=== PATIENT | female | born 1940 | race Caucasian/White ===

== ENCOUNTER 2018-02-13 14:25 | Outpatient (CLI) | payer MEDICARE | END 2018-02-13 14:26 | disposition home or self-care (01) | LOC: BICRAD 14:25 | PROVIDERS: ATTEND Specialist | DX: M25.511 Pain in right shoulder (principal); M25.562 Pain in left knee; M17.12 Unilateral primary osteoarthritis, left knee ==

== ENCOUNTER 2018-03-26 15:24 | Outpatient (CLI) | payer MEDICARE | END 2018-03-26 15:25 | disposition home or self-care (01) | LOC: BICMAMMO 15:24 | DX: Z12.31 Encounter for screening mammogram for malignant neoplasm of breast (principal) | CPT/HCPCS: 77063; 77067 ==

== ENCOUNTER 2018-08-14 14:58 | Outpatient (CLI) | payer MEDICARE ==
--- NOTE | 2018-08-14 20:30 | MRI ---
MRI OF LUMBAR SPINE WITHOUT CONTRAST: 08/14/18 HISTORY: M43.16 spondylolisthesis lumbar region. COMPARISON: CT from 2014. The aortic contour is nonaneurysmal. No retroperitoneal adenopathy. No hydronephrosis. No marrow infiltrative process. bilateral perineural cyst of the exiting S2 nerve roots. There are perineural cysts of the bilateral T10, T11, and T12 exiting nerve roots. The conus medullaris terminates near the inferior end plate of L1. Levels are as follows: T12-L1: Normal disc. No neural foraminal or spinal canal narrowing. L1-2: Mild disc desiccation. No neural foraminal or spinal canal narrowing. L2-3: Moderate degenerative disc space height loss. 1 mm retrolisthesis. There is right foraminal pos terior disc osteophyte complex causing moderate right sided neural foraminal narrowing. No significan t spinal canal narrowing. L3-4: There is low grade circumferential disc bulge. Mild effusions of the bilateral facet joints. Mi ld hypertrophic facet arthropathy on the right and moderate on the left. Moderate right and mild left sided neural foraminal narrowing. There is mildly increased posterior epidural fat. Spinal canal esvin sures approximately 5 mm. L4-5: Mild degenerative disc space height loss. There is a low grade broad based posterior disc bulge with a central annular fissure. Moderate hypertrophic facet arthropathy. Moderate bilateral neural f oraminal narrowing. L5-S1: Moderate degenerative disc space height loss. Moderate facet arthropathy. No neural foraminal or spinal canal narrowing. IMPRESSION: 1. Mild spondylosis. 2. No spondylolisthesis. 3. Multilevel perineural cysts. POS: HOME
== END 2018-08-14 14:59 | disposition home or self-care (01) ==
LOC: BICMRI 14:58
PROVIDERS: ATTEND Specialist
DX: M43.16 Spondylolisthesis, lumbar region (principal); M47.816 Spondylosis without myelopathy or radiculopathy, lumbar region; G96.19 Other disorders of meninges, not elsewhere classified
CPT/HCPCS: 72148

== ENCOUNTER 2019-06-05 11:55 | Inpatient (IN) | payer MEDICARE ==
[2019-06-05] MEDS ORDERED: Sodium Chloride 0.9% 100 ML ONE (12:47)
[2019-06-05] MEDS ORDERED: cefTRIAXone\\ROCEPHIN 1 GM VIAL ONE (12:47)
[2019-06-05] MEDS ORDERED: methylPREDNISolone Sod Succ/PF 125 MG/2 ML VIAL ONE (12:47)
[2019-06-05 13:00] LABS: Eosinophils 1 % (0-10); Hemoglobin 12.9 g/dL (12.0-16.0); Lymphocytes 12 % (21-51); MDiff Complete? YES; Mean Corpuscular HGB CONC 33.8 g/dL (32.0-36.0); Mean Corpuscular Hemoglobin 30.4 pg (27.0-31.0); Mean Platelet Volume 7.6 fL (7.4-10.4); Monocytes 9 % (0-10); Neutrophil 72 % (42-75); Platelet Count 314 thou/uL (130-400); Platelet Morphology Comment Appears Adequate; RBC Distribution Width 13.8 % (11.5-14.5); Reactive Lymphocytes 6 % (0-10); Red Blood Cell (RBC) Count 4.23 mill/uL (4.20-5.40); Toxic Granulation SLIGHT; Vacuoles SLIGHT; White Blood Cell (WBC) Count 15.1 thou/uL (4.8-10.8)
[2019-06-05 13:03] LABS: ALT (SGPT) 13 U/L (8-55); AST (SGOT) 14 U/L (5-34); Albumin 3.6 g/dL (3.4-4.8); Alkaline Phosphatase 68 U/L (40-110); Anion Gap 18 mmol/L (10-20); BUN (Urea Nitrogen) 21 mg/dL (9.8-20.1); Bilirubin, Total 0.6 mg/dL (0.2-1.2); Calc. Creatinine Clearance 0 mL/min (70-130); Calcium 10.2 mg/dL (7.8-10.44); Carbon Dioxide 26 mmol/L (23-31); Chloride 94 mmol/L (98-107); Estimated GFR-MDRD 32; Globulin 4.3 g/dL (2.4-3.5); Glucose 170 mg/dL (83-110); Protein, Total 7.9 g/dL (6.0-8.3); Sodium 135 mmol/L (136-145)
--- NOTE | 2019-06-05 13:03 | RAD ---
XR Chest Pa Lat STANDARD History: Cough. Congestion Comparison: Radiograph 2014 Findings: Small effusions. Mild portal venous congestion and early edema. No pneumothorax. Heart size upper limits of normal. No acute osseous abnormality. Nodular densities projecting over the right upper lobe and lingula. Impression: Findings of mildly decompensated congestive heart failure. Follow-up recommended as there are nodular densities projecting over the right upper lobe and lingula which may reflect areas of alveolar edema.
[2019-06-05] MEDS ORDERED: Potassium Chloride 20 MEQ TAB ONE (13:57)
[2019-06-05] MEDS ORDERED: Ondansetron ODT 4 MG TAB SL PRN (16:48)
[2019-06-05] MEDS ORDERED: Ondansetron PF 4 MG/2 ML Vial IVP PRN (16:48)
[2019-06-05] MEDS ORDERED: Acetaminophen 325 MG TAB PO PRN (16:48)
[2019-06-05] MEDS ORDERED: Sodium Chloride 0.9% 1,000 ML IV SCH (16:48)
[2019-06-05 17:18] LABS: Lactic Acid 2.9 mmol/L (0.5-2.2)
[2019-06-05 17:41] VITALS: BMI 33.8
[2019-06-05 18:27] LABS: Troponin I 0.032 ng/mL (< 0.028)
[2019-06-05] MEDS ORDERED: methylPREDNISolone Sod Succ 40 MG VIAL IVP SCH ×2 (19:00→23:59)
[2019-06-05] MEDS ORDERED: traMADol HCl 50 MG TAB PO PRN ×2 (21:16→21:36)
[2019-06-05 21:34] LABS: Troponin I 0.025 ng/mL (< 0.028)
[2019-06-05] MEDS ORDERED: Bacteriostatic Water 30 ML VIAL FS PRN (21:34)
[2019-06-05] MEDS ORDERED: Rosuvastatin 10 MG TAB PO SCH (21:45)
[2019-06-05] MEDS: Diclofenac 1% 100 GM GEL TP SCH (21:53)
[2019-06-05] MEDS: NS 0.9% w/ 20 MEQ KCL 1,000 ML IV SCH (21:54)
[2019-06-05] MEDS ORDERED: tiZANidine HCl 4 MG TAB PO SCH (22:00)
--- NOTE | 2019-06-05 23:30 | HP ---
CHIEF COMPLAINT: Shortness of breath. HISTORY OF PRESENT ILLNESS: The patient is an 79-year-old female with one week long history of increasing shortness of breath has been associated with cough, congestion. The phlegm has been light green in color. It has been getting increasing in intensity and frequency. She has began to start wheezing. She has long history of COPD. She denies any other symptoms such as, nausea, vomiting, or diarrhea. She claims that she has had a subjective fever. The patient's condition was relieved by any [id number] cough suppressants. She came to the ER when her shortness of breath that has become significantly worse. She has a 45-year pack smoking history, but quit smoking less than 10 years ago. PAST MEDICAL HISTORY: Significant for COPD, congestive heart failure, hyperlipidemia, hypertension, severe chronic back pain, and osteoporosis. PAST SURGICAL HISTORY: Includes appendectomy, hysterectomy, partial and total tonsillectomy, bladder suspension surgery to D and C, tubal ligation, and spinal injections for chronic pain. She has no psychiatric history. SOCIAL HISTORY: She continues to drink socially as mentioned above, has a 45 pack-year smoking history, but quit less than 10 years ago. 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 ALLERGIES: HER ALLERGIES ARE TO CODEINE, LEVAQUIN, AND SULFA. MEDICATIONS: She cannot recall her medications at the time of admission, which include tizanidine 4 mg at bedtime and DuoNeb nebulized treatments. REVIEW OF SYSTEMS: At the time of admission, CONSTITUTIONAL: Reports subjective fever, but no documented fever. She has shortness of breath, general malaise. HEENT: Denies ulcerations or drainage in ears, nose, and throat. CHEST: With diminished breath sounds and coughing. CARDIOVASCULAR: Denies palpitations or chest pain or heart pain. GI: States she has had some nausea, but no vomiting or diarrhea. : Denies dysuria, blood in urine or stool. MUSCULOSKELETAL: Has severe chronic back pain for which she receives injection therapy. SKIN: No new rashes or lesions. NEUROLOGIC: Cranial nerves are intact. Denies headaches or blurred vision, any areas of anesthesia. PHYSICAL EXAMINATION: VITAL SIGNS: Blood pressure initially 96/67, pulse 107, respirations 20, temperature 98.3, and O2 saturation 90% on room air. GENERAL: This is an elderly female, alert, oriented, and cooperative. HEENT: Normocephalic, atraumatic. Pupils are equal, round, and reactive to light. Arcus senilis bilaterally. Extraocular muscles are intact. TMs, nares, and pharynx are clear. NECK: Supple. Trachea midline. CHEST: With diminished breath sounds throughout. No audible wheezing at present. BREAST: Exam deferred. HEART: Regular rate and rhythm without murmur. ABDOMEN: Soft, nontender without organomegaly. : Deferred. EXTREMITIES: Without clubbing, cyanosis, or edema. Normal range of motion present. SKIN: No acute rashes or lesions. NEUROLOGIC: Cranial nerves are intact. Gait and cerebral function intact. Sensory exam is intact. Mental status is baseline. LABORATORY DATA: Lab work thus far shows WBCs at 15.1, hemoglobin 12.9, hematocrit 38 with platelets 314. Sodium 135, potassium 3.0, chloride 94, CO2 is 26, BUN 21, creatinine is 1.54 with a GFR of 32 with a glucose of 170, calcium 10.2. Lactic acid has gone from 2.1-2.9. Liver functions unremarkable. Troponin I is negative for indeterminate. Chest x-ray shows no acute findings. ASSESSMENT: 1. Exacerbation of chronic obstructive pulmonary disease with bronchitis. 2. Chronic bronchitis with exacerbation. Chest x-ray may also have early indications of congestive heart failure, possible alveolar edema as noted. 3. Hypokalemia. 4. Possible congestive heart failure exacerbation. PLAN: Plan will be scheduled neb treatments, IV steroids, serial re-evaluation, echocardiogram, hemoglobin A1c, and antibiotics. Possible supplement of potassium and serially re-evaluate her. Job ID: [id number] [facility]
[2019-06-06] MEDS: methylPREDNISolone Sod Succ 40 MG VIAL IVP SCH ×4 (04:10→20:28)
[2019-06-06 04:24] LABS: #Lymphocytes 1.1 thou/uL (1.20-3.40); #Monocytes 0.4 thou/uL (0.11-0.59); #Neutrophils 11.1 thou/uL (1.40-6.50); %Basophils 0.3 % (0.0-1.0); %Eosinophils 0.2 % (0.0-10.0); %Lymphocytes 8.4 % (21.0-51.0); %Monocytes 3.4 % (0.0-10.0); %Neutrophils 87.7 % (42.0-75.0); Hemoglobin 10.8 g/dL (12.0-16.0); Mean Corpuscular HGB CONC 33.9 g/dL (32.0-36.0); Mean Corpuscular Hemoglobin 31.2 pg (27.0-31.0); Mean Corpuscular Volume 92.2 fL (78.0-98.0); Platelet Count 230 thou/uL (130-400); RBC Distribution Width 13.5 % (11.5-14.5); Red Blood Cell (RBC) Count 3.46 mill/uL (4.20-5.40); White Blood Cell (WBC) Count 12.7 thou/uL (4.8-10.8)
[2019-06-06 04:29] LABS: Hemoglobin A1c 6.6 % (4.0-6.0)
[2019-06-06 04:43] LABS: Anion Gap 16 mmol/L (10-20); BUN (Urea Nitrogen) 37 mg/dL (9.8-20.1); Calc. Creatinine Clearance 24 mL/min (70-130); Calcium 8.9 mg/dL (7.8-10.44); Carbon Dioxide 22 mmol/L (23-31); Cardiac Risk 3.9 (Less than 4.5); Chloride 96 mmol/L (98-107); Cholesterol 126 mg/dl (< 200 Desired); Estimated GFR-MDRD 20; Glucose 317 mg/dL (83-110); HDL Cholesterol 32 mg/dL (>60 Neg Risk); LDL Cholesterol, Calculated 77 mg/dL; Potassium 4.2 mmol/L (3.5-5.1); Sodium 130 mmol/L (136-145); Triglycerides 85 mg/dL (Less than 150); Uric Acid 5.9 mg/dL (2.6-6.0)
[2019-06-06] MEDS: Budesonide 0.5 MG/2 ML NEB NEB SCH ×2 (06:54→18:24)
--- NOTE | 2019-06-06 09:50 | RAD ---
Chest 2 views HISTORY: Dyspnea. Heart failure. COMPARISON: 06/05/2019. FINDINGS: Cardiac silhouette is unremarkable. Pulmonary vascular congestion is similar in appearance to the prior study. There is mild blunting of each costophrenic angle. Mediastinum is midline with aortic calcification. No lobar consolidation or evidence of pneumothorax. school lunch monitor leads overl ie the chest. IMPRESSION: Slight interval increase in bilateral pleural effusion. Pulmonary vascular congestion oth erwise stable in appearance. Atherosclerosis.
[2019-06-06] MEDS: NS 0.9% w/ 20 MEQ KCL 1,000 ML IV SCH (10:03)
[2019-06-06] MEDS: cefTRIAXone\\ROCEPHIN 1 GM in Sodium Chloride 0.9% 100 ML IVPB SCH (10:04)
[2019-06-06] MEDS: Carvedilol 3.125 MG TAB PO SCH ×2 (10:04→16:41)
[2019-06-06] MEDS: Febuxostat 40 MG TAB PO SCH (10:04)
[2019-06-06] MEDS: Potassium Chloride 20 MEQ TAB PO SCH ×2 (10:04→16:41)
[2019-06-06] MEDS: Diclofenac 1% 100 GM GEL TP SCH ×4 (10:05→20:27)
[2019-06-06] MEDS: tiZANidine HCl 4 MG TAB PO SCH (20:27)
[2019-06-06] MEDS: Rosuvastatin 10 MG TAB PO SCH (20:27)
[2019-06-06] MEDS ORDERED: tiZANidine HCl 4 MG TAB PO SCH (21:00)
[2019-06-06] MEDS ORDERED: Rosuvastatin 20 MG TAB PO SCH (21:00)
[2019-06-07] MEDS: NS 0.9% w/ 20 MEQ KCL 1,000 ML IV SCH
[2019-06-07] MEDS: methylPREDNISolone Sod Succ 40 MG VIAL IVP SCH ×4 (02:24→21:31)
[2019-06-07] MEDS: Budesonide 0.5 MG/2 ML NEB NEB SCH ×2 (07:20→19:47)
[2019-06-07] MEDS: Potassium Chloride 20 MEQ TAB PO SCH ×2 (09:17→19:06)
[2019-06-07] MEDS: cefTRIAXone\\ROCEPHIN 1 GM in Sodium Chloride 0.9% 100 ML IVPB SCH (09:17)
[2019-06-07] MEDS: Losartan 25 MG TAB PO SCH (09:21)
[2019-06-07] MEDS: Carvedilol 3.125 MG TAB PO SCH ×2 (09:21→19:06)
[2019-06-07] MEDS: Alogliptin 6.25 MG TAB PO SCH (09:21)
[2019-06-07] MEDS: Diclofenac 1% 100 GM GEL TP SCH ×4 (09:22→21:30)
[2019-06-07] MEDS: Febuxostat 40 MG TAB PO SCH (09:34)
[2019-06-07] MEDS ORDERED: HYDROcodone/Acetaminophen 5/325 mg Tablet PO PRN (10:57)
[2019-06-07] MEDS: Acetaminophen 325 MG TAB PO PRN (11:48)
[2019-06-07] MEDS: Furosemide 40 MG/4 ML VIAL SLOW IVP SCH ×2 (11:48→15:50)
--- NOTE | 2019-06-07 12:19 | RAD ---
Chest 2 views HISTORY: Fluid overload. COMPARISON: 06/06/2019. FINDINGS: Cardiac silhouette is unremarkable. Pulmonary vasculature remains slightly engorged. Medias tinum is midline with aortic calcification. Blunting of each costophrenic angle is again demonstrated. No evidence of pneumothorax. IMPRESSION: Pulmonary vascular congestion and small bilateral pleural effusions are stable.
[2019-06-07 13:13] LABS: White Blood Cell (WBC) Count 20.6 thou/uL (4.8-10.8)
[2019-06-07 13:19] LABS: Anion Gap 16 mmol/L (10-20); BUN (Urea Nitrogen) 51 mg/dL (9.8-20.1); Calc. Creatinine Clearance 25 mL/min (70-130); Calcium 8.6 mg/dL (7.8-10.44); Carbon Dioxide 19 mmol/L (23-31); Chloride 99 mmol/L (98-107); Estimated GFR-MDRD 21; Glucose 230 mg/dL (83-110); Potassium 4.5 mmol/L (3.5-5.1); Sodium 129 mmol/L (136-145)
[2019-06-07 14:00] LABS: Band 4 % (5-11); Hemoglobin 11.7 g/dL (12.0-16.0); Lymphocytes 3 % (21-51); MDiff Complete? YES; Mean Corpuscular HGB CONC 34.4 g/dL (32.0-36.0); Mean Corpuscular Hemoglobin 31.4 pg (27.0-31.0); Mean Corpuscular Volume 91.2 fL (78.0-98.0); Mean Platelet Volume 7.7 fL (7.4-10.4); Metamyelocyte 1 % (0-0); Monocytes 7 % (0-10); Neutrophil 85 % (42-75); Platelet Count 271 thou/uL (130-400); Platelet Morphology Comment Appears Adequate; RBC Distribution Width 13.8 % (11.5-14.5); Red Blood Cell (RBC) Count 3.72 mill/uL (4.20-5.40)
[2019-06-07] MEDS: tiZANidine HCl 4 MG TAB PO SCH (21:31)
[2019-06-07] MEDS: Rosuvastatin 10 MG TAB PO SCH (21:32)
[2019-06-08] MEDS: methylPREDNISolone Sod Succ 40 MG VIAL IVP SCH ×4 (02:42→21:12)
[2019-06-08 06:07] LABS: Anion Gap 19 mmol/L (10-20); BUN (Urea Nitrogen) 61 mg/dL (9.8-20.1); Calc. Creatinine Clearance 25 mL/min (70-130); Calcium 8.7 mg/dL (7.8-10.44); Carbon Dioxide 17 mmol/L (23-31); Chloride 101 mmol/L (98-107); Estimated GFR-MDRD 21; Glucose 223 mg/dL (83-110); Potassium 5.5 mmol/L (3.5-5.1); Sodium 131 mmol/L (136-145)
[2019-06-08] MEDS: Budesonide 0.5 MG/2 ML NEB NEB SCH ×2 (06:46→18:36)
[2019-06-08] MEDS ORDERED: Citalopram 10 MG TAB PO SCH (09:30)
[2019-06-08] MEDS: Losartan 25 MG TAB PO SCH (09:57)
[2019-06-08] MEDS: Potassium Chloride 20 MEQ TAB PO SCH ×3 (09:57→16:54)
[2019-06-08] MEDS: Febuxostat 40 MG TAB PO SCH (09:58)
[2019-06-08] MEDS: Carvedilol 3.125 MG TAB PO SCH ×2 (09:58→16:48)
[2019-06-08] MEDS: Alogliptin 6.25 MG TAB PO SCH (09:58)
[2019-06-08] MEDS: Diclofenac 1% 100 GM GEL TP SCH ×4 (09:59→21:13)
[2019-06-08] MEDS: cefTRIAXone\\ROCEPHIN 1 GM in Sodium Chloride 0.9% 100 ML IVPB SCH (10:08)
[2019-06-08] MEDS: Dextrose 5% in Water 1,000 ML IV SCH ×2 (13:27→23:43)
[2019-06-08 13:33] LABS: Bacteria/HPF None Seen HPF (None Seen); Bilirubin Negative (Negative); Blood, Urine Trace (Negative); Clarity Clear (Clear); Glucose, Urine (Dipstick) 500 mg/dL (Negative); Leukocyte 25 Leu/uL (Negative); Nitrite Negative (Negative); Protein, Urine (Dipstick) Negative (Neg-Trace); RBC/HPF 0-3 HPF (0-3); Squamous Epithelial 0-3 HPF (0-3); Urobilinogen Normal mg/dL (Less than 2); WBC/HPF 0-3 HPF (0-3)
[2019-06-08] MEDS: Rosuvastatin 10 MG TAB PO SCH (21:12)
[2019-06-08] MEDS: tiZANidine HCl 4 MG TAB PO SCH (21:13)
[2019-06-09] MEDS: methylPREDNISolone Sod Succ 40 MG VIAL IVP SCH ×4 (04:07→20:39)
[2019-06-09 05:24] LABS: #Eosinphils 0.1 thou/uL (0.0-0.7); #Lymphocytes 1.3 thou/uL (1.20-3.40); #Monocytes 0.6 thou/uL (0.11-0.59); #Neutrophils 11.3 thou/uL (1.40-6.50); %Eosinophils 0.5 % (0.0-10.0); %Lymphocytes 9.8 % (21.0-51.0); %Monocytes 4.2 % (0.0-10.0); %Neutrophils 85.5 % (42.0-75.0); Hemoglobin 11.2 g/dL (12.0-16.0); Mean Corpuscular HGB CONC 34.3 g/dL (32.0-36.0); Mean Corpuscular Hemoglobin 31.8 pg (27.0-31.0); Mean Corpuscular Volume 92.6 fL (78.0-98.0); Mean Platelet Volume 7.6 fL (7.4-10.4); Platelet Count 286 thou/uL (130-400); RBC Distribution Width 13.7 % (11.5-14.5); Red Blood Cell (RBC) Count 3.51 mill/uL (4.20-5.40); White Blood Cell (WBC) Count 13.2 thou/uL (4.8-10.8)
[2019-06-09 05:41] LABS: Anion Gap 15 mmol/L (10-20); BUN (Urea Nitrogen) 53 mg/dL (9.8-20.1); Calc. Creatinine Clearance 33 mL/min (70-130); Calcium 8.4 mg/dL (7.8-10.44); Carbon Dioxide 18 mmol/L (23-31); Chloride 99 mmol/L (98-107); Estimated GFR-MDRD 27; Glucose 305 mg/dL (83-110); Potassium 4.9 mmol/L (3.5-5.1); Sodium 127 mmol/L (136-145)
[2019-06-09] MEDS: Dextrose 5% in Water 1,000 ML IV SCH (06:17)
[2019-06-09] MEDS: Budesonide 0.5 MG/2 ML NEB NEB SCH ×2 (07:07→18:42)
[2019-06-09] MEDS ORDERED: Insulin Regular 300 UNITS/3 ML VIAL SC PRN (08:52)
[2019-06-09] MEDS ORDERED: Dextrose 5% in Water 1,000 ML IV PRN (08:52)
[2019-06-09] MEDS ORDERED: Dextrose 50% Abboject 50 ML SYRINGE IVP PRN (08:52)
[2019-06-09] MEDS: Carvedilol 3.125 MG TAB PO SCH ×2 (09:32→18:44)
[2019-06-09] MEDS: Diclofenac 1% 100 GM GEL TP SCH ×4 (09:32→20:49)
[2019-06-09] MEDS: Alogliptin 6.25 MG TAB PO SCH (09:32)
[2019-06-09] MEDS: Potassium Chloride 20 MEQ TAB PO SCH ×2 (09:32→16:02)
[2019-06-09] MEDS: Citalopram 10 MG TAB PO SCH (09:32)
[2019-06-09] MEDS: Losartan 25 MG TAB PO SCH (09:33)
[2019-06-09] MEDS: Febuxostat 40 MG TAB PO SCH (10:10)
[2019-06-09] MEDS: Sodium Chloride 0.45% 1,000 ML IV SCH (11:18)
--- NOTE | 2019-06-09 13:15 | PQF ---
CLINICAL DOCUMENTATION IMPROVEMENT CLARIFICATION FORM: ICD-10 Updated PLEASE DO AN ADDENDUM TO THE PROGRESS NOTE WITH ANY DOCUMENTATION UPDATES OR ADDITIONS AND CARRY THROUGH TO DC SUMMARY. THANK YOU. DATE: 06/09/19 ATTN: DR. CHRISTIE Please exercise your independent, professional judgment in responding to the clarification form. Clinical indicators are provided on the bottom of this form for your review Please check appropriate box(es): [ ] Sepsis due to: (Pna, UTI, gangrenous gall bladder, etc.) [ ] SIRS due to non-infectious process (please specify etiology) [ ] Localized infection without sepsis [ ] Other diagnosis [ x ] Unable to determine In addition, please specify: Present on Admission (POA): [ ] Yes [ ] No [ x ] Unable to determine For continuity of documentation, please document condition throughout progress notes and discharge summary. Thank You. 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 All Rights Reserved BERNABE [email or web address] Office: [phone] [facility]
[2019-06-09] MEDS: cloNIDine 0.1 MG TAB PO PRN ×2 (20:39→21:53)
[2019-06-09] MEDS: Rosuvastatin 10 MG TAB PO SCH (20:49)
[2019-06-09] MEDS: tiZANidine HCl 4 MG TAB PO SCH (20:49)
[2019-06-10] MEDS: methylPREDNISolone Sod Succ 40 MG VIAL IVP SCH (03:17)
[2019-06-10] MEDS: Sodium Chloride 0.45% 1,000 ML IV SCH ×3 (03:17→20:22)
[2019-06-10] MEDS: Budesonide 0.5 MG/2 ML NEB NEB SCH ×2 (07:09→18:56)
[2019-06-10] MEDS ORDERED: Alogliptin 25 MG TAB PO SCH (08:30)
[2019-06-10] MEDS: Carvedilol 3.125 MG TAB PO SCH (09:08)
[2019-06-10] MEDS: Potassium Chloride 20 MEQ TAB PO SCH ×2 (09:09→16:11)
[2019-06-10] MEDS: Carvedilol 6.25 MG TAB PO SCH ×2 (09:09→20:22)
[2019-06-10] MEDS: Losartan 25 MG TAB PO SCH (09:10)
[2019-06-10] MEDS: Diclofenac 1% 100 GM GEL TP SCH ×4 (09:10→20:23)
[2019-06-10] MEDS: Febuxostat 40 MG TAB PO SCH (09:10)
[2019-06-10] MEDS: Citalopram 10 MG TAB PO SCH (09:10)
[2019-06-10] MEDS: predniSONE 20 MG TAB PO SCH (16:11)
[2019-06-10] MEDS: tiZANidine HCl 4 MG TAB PO SCH (20:22)
[2019-06-10] MEDS: Rosuvastatin 10 MG TAB PO SCH (20:22)
[2019-06-10] MEDS: Acetaminophen 325 MG TAB PO PRN (20:24)
[2019-06-11] MEDS: Sodium Chloride 0.45% 1,000 ML IV SCH (06:23)
[2019-06-11] MEDS: Budesonide 0.5 MG/2 ML NEB NEB SCH ×2 (07:17→19:16)
--- NOTE | 2019-06-11 08:29 | RAD ---
XR Chest Pa Lat STANDARD HISTORY: Pleural effusions follow-up COMPARISON: 06/07/2019 FINDINGS: The heart size is prominent but stable. The aorta is tortuous. There is mild pulmonary vasc ular congestion with small bilateral pleural effusions. No pneumothoraces are seen. IMPRESSION: Stable exam.
[2019-06-11] MEDS: Potassium Chloride 20 MEQ TAB PO SCH ×2 (08:53→16:08)
[2019-06-11] MEDS: Losartan 25 MG TAB PO SCH (08:54)
[2019-06-11] MEDS: Febuxostat 40 MG TAB PO SCH (08:54)
[2019-06-11] MEDS: predniSONE 20 MG TAB PO SCH ×2 (08:54→16:08)
[2019-06-11] MEDS: Diclofenac 1% 100 GM GEL TP SCH ×4 (08:54→20:55)
[2019-06-11] MEDS: Carvedilol 6.25 MG TAB PO SCH ×2 (08:54→20:54)
[2019-06-11] MEDS: Alogliptin 25 MG TAB PO SCH (08:54)
[2019-06-11] MEDS: Citalopram 10 MG TAB PO SCH (08:54)
[2019-06-11] MEDS ORDERED: Amoxicillin/Potassium Clav 875 MG TAB PO SCH (10:30)
[2019-06-11 10:56] LABS: Anion Gap 12 mmol/L (10-20); BUN (Urea Nitrogen) 43 mg/dL (9.8-20.1); Calc. Creatinine Clearance 44 mL/min (70-130); Calcium 8.3 mg/dL (7.8-10.44); Carbon Dioxide 20 mmol/L (23-31); Chloride 105 mmol/L (98-107); Estimated GFR-MDRD 36; Glucose 137 mg/dL (83-110); Potassium 4.6 mmol/L (3.5-5.1); Sodium 132 mmol/L (136-145)
[2019-06-11] MEDS: guaiFENesin ER 600 MG TAB PO SCH ×2 (11:05→20:55)
[2019-06-11] MEDS: cloNIDine 0.1 MG TAB PO SCH ×2 (11:05→20:55)
[2019-06-11] MEDS: Amoxicillin/Potassium Clav 875 MG TAB PO SCH (20:54)
[2019-06-11] MEDS: Rosuvastatin 10 MG TAB PO SCH (20:55)
[2019-06-11] MEDS: tiZANidine HCl 4 MG TAB PO SCH (20:59)
[2019-06-12] MEDS: cloNIDine 0.1 MG TAB PO PRN (04:58)
[2019-06-12 06:52] LABS: Hemoglobin 11.6 g/dL (12.0-16.0); Mean Corpuscular HGB CONC 33.5 g/dL (32.0-36.0); Mean Corpuscular Hemoglobin 30.8 pg (27.0-31.0); Mean Corpuscular Volume 92.1 fL (78.0-98.0); Mean Platelet Volume 7.4 fL (7.4-10.4); Platelet Count 257 thou/uL (130-400); Red Blood Cell (RBC) Count 3.77 mill/uL (4.20-5.40)
[2019-06-12 06:53] LABS: Band 5 % (5-11); Lymphocytes 6 % (21-51); MDiff Complete? YES; Metamyelocyte 1 % (0-0); Monocytes 5 % (0-10); Neutrophil 83 % (42-75); Platelet Morphology Comment Appears Adequate
[2019-06-12 07:07] LABS: Anion Gap 12 mmol/L (10-20); BUN (Urea Nitrogen) 38 mg/dL (9.8-20.1); Calc. Creatinine Clearance 49 mL/min (70-130); Calcium 8.5 mg/dL (7.8-10.44); Carbon Dioxide 20 mmol/L (23-31); Chloride 106 mmol/L (98-107); Estimated GFR-MDRD 42; Glucose 160 mg/dL (83-110); Potassium 5.3 mmol/L (3.5-5.1); Sodium 133 mmol/L (136-145)
[2019-06-12] MEDS: Budesonide 0.5 MG/2 ML NEB NEB SCH (07:07)
[2019-06-12] MEDS: Carvedilol 6.25 MG TAB PO SCH (09:09)
[2019-06-12] MEDS: Febuxostat 40 MG TAB PO SCH (09:09)
[2019-06-12] MEDS: Losartan 25 MG TAB PO SCH (09:09)
[2019-06-12] MEDS: guaiFENesin ER 600 MG TAB PO SCH (09:10)
[2019-06-12] MEDS: cloNIDine 0.1 MG TAB PO SCH (09:10)
[2019-06-12] MEDS: Potassium Chloride 20 MEQ TAB PO SCH (09:10)
[2019-06-12] MEDS: Alogliptin 25 MG TAB PO SCH (09:10)
[2019-06-12] MEDS: Amoxicillin/Potassium Clav 875 MG TAB PO SCH (09:10)
[2019-06-12] MEDS: Citalopram 10 MG TAB PO SCH (09:10)
[2019-06-12] MEDS: predniSONE 20 MG TAB PO SCH (09:11)
[2019-06-12] MEDS: Diclofenac 1% 100 GM GEL TP SCH (09:15)
[2019-06-12 11:18] VITALS: BP 151/65; TEMP 97.6
--- NOTE | 2019-06-15 01:00 | PQF ---
CHUCK DANIEL MICHAEL E MD [id number] [facility] [id number] CLINICAL DOCUMENTATION CLARIFICATION FORM: POST DISCHARGE Addendum to original discharge summary date: ____ Late entry note date: __ DATE: 06/15/19 ATTN:Manny Mendoza Please exercise your independent, professional judgment in responding to the clarification form. Clinical indicators are provided on the bottom of this form for your review Please check appropriate box(s) to clarify if the following diagnosis has been ruled in or ruled out: CHF EXACERBATION [ ] Ruled in diagnosis [ ] Continue to treat [ ] Resolved [ x ] Ruled out diagnosis [ ] Cannot rule out diagnosis [ ] Other diagnosis [ ] Unable to determine And if ruled in: Please specify type of CHF [ ]Systolic [ ]Diastolic [ ]Combined systolic and diastolic For continuity of documentation, please document condition throughout progress notes and discharge summary. Thank You. CLINICAL INDICATORS - SIGNS / SYMPTOMS / LABS HP 06/05 "Possible CHF exacerbation" ED Notes 06/06 "patient presented for evaluation of SOB" Echo 06/06 "EF 65-70%" Chest Xray 06/05 "cough and congestion" Chest Xray 06/05 "Small effusions" Chest Xray 06/05 "findings of mildly decompensated CHF" HP 06/05 "early indications of CHF possible alveolar edema as noted" Labs:BNP 06/0544=427.8 RISK FACTORS ED Notes 06/06-79 years old ED Notes 06/06-HTN ED Notes 06/06-COPD ED Notes 06/06-HLD ED Notes 06/06-High cholesterol TREATMENTS Collected 06/05-Chest xray Collected 06/06-Echo MAR 06/07-Lasix 40mg IV (This form is maintained as a part of the permanent medical record) 2014 [employer]. All Rights Reserved [email or web address] [not provided] RON
== END 2019-06-12 13:15 | disposition home or self-care (01) | DRG 192 ==
LOC: SCSER 11:55 → 2SW 13:35 → SCSER 16:04 → OBSVTOIN 06-06 23:30 → 2NO 06-07 17:28
PROVIDERS: ADMIT Specialist; ATTEND Specialist
DX: J44.1 Chronic obstructive pulmonary disease with (acute) exacerbation (principal); I50.9 Heart failure, unspecified; E78.5 Hyperlipidemia, unspecified; E78.00 Pure hypercholesterolemia, unspecified; G89.29 Other chronic pain; M81.0 Age-related osteoporosis without current pathological fracture; E87.6 Hypokalemia; I11.0 Hypertensive heart disease with heart failure; Z90.49 Acquired absence of other specified parts of digestive tract; Z90.710 Acquired absence of both cervix and uterus; Z98.51 Tubal ligation status; Z87.891 Personal history of nicotine dependence; Z88.1 Allergy status to other antibiotic agents; Z88.5 Allergy status to narcotic agent; Z88.2 Allergy status to sulfonamides
CPT/HCPCS: 36415; 36416; 71046; 80048; 80053; 80061; 81001; 83036; 83605; 83880; 84484; 84550; 85025; 87040; 93005; 93306; 94640; 94760; 96361; 96365; 96375; J0696; J1815; J1940; J2920; J2930; J3480; J3490; J7512; J7620; J7626

== ENCOUNTER 2019-11-19 12:19 | Observation (INO) | payer MEDICARE ==
[2019-11-19 13:11] LABS: #Eosinphils 0.2 thou/uL (0.0-0.7); #Lymphocytes 1.6 thou/uL (1.20-3.40); #Monocytes 0.7 thou/uL (0.11-0.59); #Neutrophils 6.4 thou/uL (1.40-6.50); %Basophils 0.2 % (0.0-1.0); %Eosinophils 2.2 % (0.0-10.0); %Lymphocytes 18.2 % (21.0-51.0); %Monocytes 7.6 % (0.0-10.0); %Neutrophils 71.8 % (42.0-75.0); Hemoglobin 12.2 g/dL (12.0-16.0); Mean Corpuscular HGB CONC 33.6 g/dL (32.0-36.0); Mean Corpuscular Hemoglobin 29.2 pg (27.0-31.0); Mean Corpuscular Volume 86.8 fL (78.0-98.0); Platelet Count 149 thou/uL (130-400); RBC Distribution Width 15.2 % (11.5-14.5); Red Blood Cell (RBC) Count 4.17 mill/uL (4.20-5.40); White Blood Cell (WBC) Count 8.9 thou/uL (4.8-10.8)
[2019-11-19] MEDS ORDERED: predniSONE 20 MG TAB ONE (13:31)
--- NOTE | 2019-11-19 13:31 | RAD ---
EXAM: CHEST ONE VIEW HISTORY: Chest pain COMPARISON: 06/11/2019 FINDINGS: Cardiac silhouette is magnified by projection but does appear mildly enlarged. Minimal linear scar ve rsus atelectasis is seen in the midlung zones bilaterally. No consolidation is seen. There is slight blunting of the left lateral costophrenic angle which is unchanged from the prior study and ma y be related to minimal pleural and parenchymal scarring as well as overlying soft tissue density. Vascular calcifications are seen in the thoracic aorta. Osteopenia is present. Chest is unchanged com pared to prior exam. IMPRESSION: No acute cardiopulmonary process.
[2019-11-19 13:33] LABS: ALT (SGPT) 11 U/L (8-55); AST (SGOT) 17 U/L (5-34); Albumin 4.1 g/dL (3.4-4.8); Alkaline Phosphatase 68 U/L (40-110); Anion Gap 12 mmol/L (10-20); BUN (Urea Nitrogen) 13 mg/dL (9.8-20.1); Bilirubin, Total 0.9 mg/dL (0.2-1.2); Calc. Creatinine Clearance 0 mL/min (70-130); Calcium 9.7 mg/dL (7.8-10.44); Carbon Dioxide 28 mmol/L (23-31); Chloride 101 mmol/L (98-107); Estimated GFR-MDRD 50; Globulin 3.5 g/dL (2.4-3.5); Glucose 135 mg/dL (83-110); Magnesium 2.2 mg/dL (1.6-2.6); Potassium 3.3 mmol/L (3.5-5.1); Protein, Total 7.6 g/dL (6.0-8.3); Sodium 138 mmol/L (136-145)
[2019-11-19 13:38] LABS: Bilirubin Negative (Negative); Blood, Urine Negative (Negative); Clarity Clear (Clear); Glucose, Urine (Dipstick) Normal (Negative); Leukocyte Negative Leu/uL (Negative); Nitrite Negative (Negative); Protein, Urine (Dipstick) 10 mg/dL (Neg-Trace); Urobilinogen 3 mg/dL (Less than 2)
[2019-11-19] MEDS ORDERED: Iopamidol 370 76% 100 ML VIAL ONE (13:45)
[2019-11-19] MEDS ORDERED: Aspirin Chewable 81 MG TAB ONE (14:48)
--- NOTE | 2019-11-19 15:10 | CT ---
CT ANGIOGRAM CHEST WITH 3D RENDERING: HISTORY: Right-sided sharp chest pain with deep inspiration. COMPARISON: 08/22/2010. FINDINGS: There is some bilateral vascular congestion with evidence for mild edema. Overall stable-appearing c ardiomegaly with 3-vessel coronary artery calcific disease. Small pleural effusions since the prior MRI of 2009. Minimal bilateral chronic bullous changes. No convincing CT evidence for acute pulmona ry embolism. Old granulomatous disease. Stable scarring in the lingula. No pericardial effusion. Visualized upper abdomen is unremarkable. IMPRESSION: 1. No convincing CT evidence for acute pulmonary embolism. 2. Small bilateral pleural effusions and vascular congestion with probable mild interstitial edema. 3. Other findings as above. POS: [facility]
[2019-11-19] MEDS ORDERED: Acetaminophen 500 MG TAB ONE (18:10)
[2019-11-19] MEDS ORDERED: traMADol HCl 50 MG TAB PO PRN (19:33)
[2019-11-19] MEDS ORDERED: Insulin Regular 300 UNITS/3 ML VIAL SC PRN (19:35)
[2019-11-19] MEDS ORDERED: Dextrose 5% in Water 1,000 ML IV PRN (19:35)
[2019-11-19] MEDS ORDERED: Dextrose 50% Abboject 50 ML SYRINGE IVP PRN (19:35)
[2019-11-19] MEDS ORDERED: Diclofenac 1% 100 GM GEL TP PRN (19:36)
[2019-11-19] MEDS: Carvedilol 6.25 MG TAB PO SCH (20:38)
[2019-11-19] MEDS: cloNIDine 0.1 MG TAB PO SCH (20:39)
[2019-11-19] MEDS ORDERED: tiZANidine HCl 4 MG TAB PO SCH (21:00)
[2019-11-19] MEDS ORDERED: Rosuvastatin 20 MG TAB PO SCH (21:00)
[2019-11-19] MEDS ORDERED: Citalopram 10 MG TAB PO SCH (21:00)
[2019-11-19 21:47] VITALS: BMI 33.0
--- NOTE | 2019-11-19 22:25 | HP ---
CHIEF COMPLAINT ON ADMISSION: Exacerbation of COPD and right-sided chest pain. HISTORY OF PRESENT ILLNESS: The patient is an 79-year-old female with long history of COPD that began to woke this morning, having significant trouble breathing and pain with movement on her right side, it was sharp in nature. It was made worse with deep inspiration. She denies any history of pulmonary embolism or DVT. She did have a cough, it is productive of yellowish to white sputum, but denies any fever. No recent travel or exposure to other sick individuals. She has been at home by herself for the last 2 weeks with very limited contact. She began using her nebulizers to break this tightness in her chest and difficulty breathing, but was unable to do so. She began to have chills the other day, but no overt fever. She has had some diarrhea for 2 times a day, which she could not get better. She is using her home nebulizer. She then came to the emergency room for further evaluation. In the ER, she was given several treatments successively, but did not have improvement in her breathing. She still remains very short of breath, has had wheezing. The pain in her chest when cardiac enzymes were initially negative was persistent. At this point, unable to improve her breathing. Dr. Bryant was contacted for admission and/or observation initially to see how she responds to 24 more hours of intense respiratory care. PAST MEDICAL HISTORY: Significant for prior hospitalization on June 13 for an exacerbation of COPD. The patient has congestive heart failure, hyperlipidemia, hypertension, chronic back pain and osteoporosis. PAST SURGICAL HISTORY: Includes appendectomy, hysterectomy, partial and total tonsillectomy, bladder suspension surgery, D and C, tubal ligation, and spinal injections for chronic pain. PAST PSYCHIATRIC HISTORY: There is no psychiatric history. 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 She continues to drink socially. Quit smoking approximately 10 years ago, but prior to that had a 45 pack-year smoking history. ALLERGIES: CODEINE, LEVAQUIN, AND SULFA. MEDICATIONS ON ADMISSION: Include; 1. Tradjenta 5 mg daily. 2. Albuterol nebulizer treatments at home. 3. Aspirin 81 mg daily. 4. Tizanidine 4 mg at bedtime. 5. Clonidine 0.1 mg b.i.d. 6. Rosuvastatin 20 mg at bedtime. 7. Carvedilol 12.5 mg twice a day. 8. Citalopram 10 mg at bedtime. 9. Pantoprazole 40 mg daily. 10. Losartan 20 mg daily. 11. Tramadol 50 mg p.r.n. breakthrough back pain. REVIEW OF SYSTEMS: GENERAL: She admits to weakness, dyspnea, fatigue. HEENT: Denies fever, drainage from eyes, ears, nose, or throat. CHEST: Has pain with palpation on the right side of her chest wall. She is very short of breath, coughing and wheezing. CARDIOVASCULAR: Denies palpitations. GI: Has had two episodes of diarrhea today. Denies nausea, vomiting. : Undergoing current treatment for UTI with Macrobid, but denies blood in urine or stool and has improvement in her UTI symptoms. MUSCULOSKELETAL: Generally weak, but no specific areas of pain or inflammation. SKIN: No new rashes or lesions. NEUROLOGICAL: No trouble with headaches, or mentation. LYMPHATIC: No new areas of edema, brayan swelling. PHYSICAL EXAMINATION: VITAL SIGNS: At the time of admission, blood pressure 139/77, pulse is 64, O2 saturation is 94% on 2 L of oxygen, respiratory rate 19, in the ER got up as high as 22, pain scale rated as zero currently. GENERAL: This is an elderly female, alert, oriented, cooperative, well-nourished, mildly obese. HEENT: Normocephalic, atraumatic. Diminished pupil reactivity to light at 2 to 3 mmHg. Arcus senilis bilaterally. TMs, nares, and pharynx are clear. NECK: Supple, trachea midline. CHEST: With generally diminished breath sounds in all rivera. Occasional faint wheezing noted. HEART: Regular rate and rhythm. BREASTS: Exam deferred. ABDOMEN: Soft, nontender without organomegaly. : Deferred. EXTREMITIES: With mild muscular wasting in upper and lower extremities. SKIN: Poor turgor. No acute rashes or lesions. NEUROLOGIC: Cranial nerves are intact. Unable to test gait and cerebral function at this time. Sensory exam is grossly intact. Mental status is at baseline. LABORATORY DATA: Thus far shows WBCs 8.9, hemoglobin 12.3, hematocrit 36.2 with platelets at 149. D-dimer elevated at 1.85. Sodium 138, potassium 3.3, chloride 113, creatinine 1.06 with a GFR 50, glucose 135, lactic acid 1.5, calcium 9.7, magnesium 2.2. Liver functions unremarkable. Troponin negative. BNP slightly elevated at 370. UA shows urobilinogen at 3, otherwise negative. Chest x-ray shows no acute cardiopulmonary process. The cardiac silhouette is mildly enlarged. CT of the chest showed no convincing evidence of PE. Small bilateral pleural effusions with some vascular congestion and cardiomegaly. ASSESSMENT: 1. Exacerbation of chronic obstructive pulmonary disease. 2. Hypokalemia. 3. Urinary tract infection in process of being treated. PLAN: Observation in medical bed. Routine scheduled neb treatments to be continued. She will also have nebulized corticosteroids as well as we are going to go ahead and use antibiotics at this time and make sure she is covered for both the residual urinary tract infection as well as the possible development of early bronchitis. The patient will be serially re-evaluated. Job ID: [id number]
[2019-11-19] MEDS: cefTRIAXone\\ROCEPHIN 1 GM in Sodium Chloride 0.9% 100 ML IVPB SCH (22:31)
[2019-11-19] MEDS: methylPREDNISolone Sod Succ/PF 125 MG/2 ML VIAL IVP SCH (23:48)
[2019-11-20] MEDS: methylPREDNISolone Sod Succ/PF 125 MG/2 ML VIAL IVP SCH ×2 (05:11→13:12)
[2019-11-20 05:49] LABS: #Monocytes 0.1 thou/uL (0.11-0.59); #Neutrophils 5.9 thou/uL (1.40-6.50); %Basophils 0.2 % (0.0-1.0); %Eosinophils 0.2 % (0.0-10.0); %Lymphocytes 13.8 % (21.0-51.0); %Monocytes 1.4 % (0.0-10.0); %Neutrophils 84.4 % (42.0-75.0); Hemoglobin A1c 5.8 % (4.0-6.0); Mean Corpuscular HGB CONC 33.4 g/dL (32.0-36.0); Mean Corpuscular Hemoglobin 29.2 pg (27.0-31.0); Mean Corpuscular Volume 87.4 fL (78.0-98.0); Mean Platelet Volume 9.6 fL (7.4-10.4); Platelet Count 144 thou/uL (130-400); Red Blood Cell (RBC) Count 4.12 mill/uL (4.20-5.40)
[2019-11-20 06:11] LABS: Anion Gap 18 mmol/L (10-20); BUN (Urea Nitrogen) 14 mg/dL (9.8-20.1); Calc. Creatinine Clearance 52 mL/min (70-130); Calcium 9.2 mg/dL (7.8-10.44); Carbon Dioxide 18 mmol/L (23-31); Cardiac Risk 2.9 (Less than 4.5); Chloride 104 mmol/L (98-107); Cholesterol 124 mg/dl (< 200 Desired); Estimated GFR-MDRD 51; Glucose 201 mg/dL (83-110); HDL Cholesterol 43 mg/dL (>60 Neg Risk); LDL Cholesterol, Calculated 65 mg/dL; Potassium 3.5 mmol/L (3.5-5.1); Sodium 136 mmol/L (136-145); Triglycerides 78 mg/dL (Less than 150)
[2019-11-20] MEDS ORDERED: Budesonide 0.5 MG/2 ML NEB NEB SCH (06:30)
[2019-11-20] MEDS ORDERED: Alogliptin 25 MG TAB PO SCH (09:00)
[2019-11-20] MEDS ORDERED: Citalopram 10 MG TAB PO SCH (09:00)
[2019-11-20] MEDS ORDERED: Pantoprazole 40 MG VIAL IVP SCH (09:00)
[2019-11-20] MEDS ORDERED: Losartan 25 MG TAB PO SCH (09:00)
[2019-11-20] MEDS ORDERED: Aspirin Chewable 81 MG TAB PO SCH (09:00)
[2019-11-20] MEDS: Carvedilol 6.25 MG TAB PO SCH (09:48)
[2019-11-20] MEDS: cloNIDine 0.1 MG TAB PO SCH (09:48)
[2019-11-20 11:24] VITALS: BP 129/65; TEMP 98.1
[2019-11-20] MEDS: cefTRIAXone\\ROCEPHIN 1 GM in Sodium Chloride 0.9% 100 ML IVPB SCH (13:59)
== END 2019-11-20 15:48 | disposition home or self-care (01) ==
LOC: ERS 12:19 → T4-B 19:38
PROVIDERS: ADMIT Specialist; ATTEND Specialist
DX: J44.1 Chronic obstructive pulmonary disease with (acute) exacerbation (principal); E87.6 Hypokalemia; N39.0 Urinary tract infection, site not specified; E78.5 Hyperlipidemia, unspecified; G89.29 Other chronic pain; M54.9 Dorsalgia, unspecified; Z79.82 Long term (current) use of aspirin; Z79.899 Other long term (current) drug therapy; Z87.891 Personal history of nicotine dependence; Z88.1 Allergy status to other antibiotic agents; Z88.2 Allergy status to sulfonamides; Z88.5 Allergy status to narcotic agent
CPT/HCPCS: 71045; 71275; 80048; 80053; 80061; 81003; 82962 ×2; 83036; 83605; 83735; 83880; 84484; 85025 ×2; 85379; 93005; 94640 ×3; 96361; 96365; 96375 ×2; 96376; 99285; G0378 ×2; 36415; 36416; 96360; C9113; J0696; J2930; J3490; J7512; J7620; J7626; Q9967

== ENCOUNTER 2020-02-02 19:07 | Observation (INO) | payer MEDICARE ==
[~2020-02-02 19:07] MED LIST: Iopamidol-370 76% 500 ML 1 ML ONE
[2020-02-02] MEDS ORDERED: Labetalol HCl 100 MG/20 ML VIAL ONE (19:15)
[2020-02-02] MEDS ORDERED: Metoclopramide HCl 10 MG/2 ML VIAL ONE (19:26)
[2020-02-02] MEDS ORDERED: Magnesium 2 GM/50 ML BAG (IN WATER) ONE (19:26)
[2020-02-02] MEDS ORDERED: diphenhydrAMINE 50 MG/ML VIAL ONE (19:26)
[2020-02-02] MEDS ORDERED: Acetaminophen 500 MG TAB ONE (19:26)
[2020-02-02 19:38] LABS: #Eosinphils 0.1 thou/uL (0.0-0.7); #Lymphocytes 2.4 thou/uL (1.20-3.40); #Monocytes 0.7 thou/uL (0.11-0.59); #Neutrophils 4.9 thou/uL (1.40-6.50); %Basophils 0.5 % (0.0-1.0); %Eosinophils 1.2 % (0.0-10.0); %Lymphocytes 29.6 % (21.0-51.0); %Monocytes 8.5 % (0.0-10.0); %Neutrophils 60.3 % (42.0-75.0); Hemoglobin 14.1 g/dL (12.0-16.0); Mean Corpuscular HGB CONC 34.7 g/dL (32.0-36.0); Mean Corpuscular Volume 89.3 fL (78.0-98.0); Mean Platelet Volume 8.7 fL (7.4-10.4); Platelet Count 184 thou/uL (130-400); RBC Distribution Width 14.7 % (11.5-14.5); Red Blood Cell (RBC) Count 4.54 mill/uL (4.20-5.40); White Blood Cell (WBC) Count 8.1 thou/uL (4.8-10.8)
[2020-02-02 19:42] LABS: INR-International Normal Ratio 1.1; Prothrombin Time 14.6 sec (12.0-14.7)
[2020-02-02 20:00] LABS: ALT (SGPT) 12 U/L (8-55); AST (SGOT) 29 U/L (5-34); Albumin 4.2 g/dL (3.4-4.8); Alkaline Phosphatase 72 U/L (40-110); Anion Gap 14 mmol/L (10-20); BUN (Urea Nitrogen) 16 mg/dL (9.8-20.1); Bilirubin, Total 0.5 mg/dL (0.2-1.2); CRP (Inflammatory) Less than 0.50 mg/dL (= or < 0.5); Calc. Creatinine Clearance 0 mL/min (70-130); Calcium 9.9 mg/dL (7.8-10.44); Carbon Dioxide 21 mmol/L (23-31); Chloride 105 mmol/L (98-107); Estimated GFR-MDRD 52; Globulin 4.4 g/dL (2.4-3.5); Glucose 118 mg/dL (83-110); Potassium 4.4 mmol/L (3.5-5.1); Protein, Total 8.6 g/dL (6.0-8.3); Sodium 136 mmol/L (136-145)
--- NOTE | 2020-02-02 20:10 | RAD ---
PORTABLE CHEST ONE VIEW: 02/02/20 at 6:46 p.m. HISTORY: TIA. COMPARISON: 11/19/19. The heart size appears prominent But stable. The aorta is tortuous. Chronic changes in the lung field s are again seen. No lobar consolidation, pneumothoraces, rashaad pulmonary edema or pleural effusions are seen. IMPRESSION: No acute process. POS: [facility]
--- NOTE | 2020-02-02 22:07 | CT ---
CT BRAIN WITHOUT CONTRAST: 02/02/20 HISTORY: Level II stroke. TIA. Frontal headache. Aphasia resolved. FINDINGS: There are changes of chronic small vessel ischemic disease in the periventricular white matter. The v entricular size is appropriate and the basilar cisterns patent. No evidence of acute infarct, hemorrh age, hemorrhage, midline shift or abnormal extra-axial fluid collections are seen. The bony calvarium is intact. There is mucosal disease in the posterior left ethmoid air cells. The mastoid air cells a re clear. IMPRESSION: No CT evidence of acute intracranial process. Discussed over the telephone with the ER physician Dr. Italo Presley at 7:45 p.m. POS: [facility]
--- NOTE | 2020-02-02 23:00 | CT ---
CT ANGIOGRAM OF HEAD WITH IV CONTRAST AND 3D POSTPROCESSING: CT ANGIOGRAM OF NECK WITH IV CONTRAST AND 3D POSTPROCESSIN02/02/20 HISTORY: Level II stroke, headache, aphasia resolved, TIA. FINDINGS: Calcified atherosclerotic plaques are noted in the common carotid, internal carotid and vertebrobasil ar systems bilaterally. No evidence of high grade stenosis, major branch occlusion or aneurysm forma tion identified. There are emphysematous changes in the visualized lung rivera with calcified granulo mas in the right middle lobe, and mediastinum. There are degenerative changes in the spine. There is mucosal disease in the left posterior ethmoid air cells. No cervical lymphadenopathy is seen. The air way is patent. IMPRESSION: No evidence of high grade stenosis, major branch occlusion or aneurysm formation. Discussed over the telephone with ER physician, Dr. Italo Presley at 8:01 p.m. POS: [facility]
[2020-02-02 23:03] VITALS: BMI 31.4
[2020-02-02] MEDS ORDERED: hydrALAZINE 20 MG/ML VIAL SLOW IVP PRN (23:10)
[2020-02-03 02:33] LABS: Troponin I 0.011 ng/mL (< 0.028)
[2020-02-03] MEDS ORDERED: Alogliptin 25 MG TAB PO SCH (08:30)
--- NOTE | 2020-02-03 08:45 | HP ---
CHIEF COMPLAINT: Transient ischemic attack. HISTORY OF PRESENT ILLNESS: The patient is an 79-year-old female in her usual state of good health until the day prior to admission. She felt very tired and slept most of that day. Denies fever, cough, chills, or exposure to any other illness on the day of admission. She developed an inability to say which she wanted to say unintelligible noise would come out of her mouth and words that made no sense. This lasted for up to 3 hours, at which time, she told her daughter to bring her to the emergency room. After 3 hours, all of her symptoms cleared completely. She never did exhibit any other physical manifestation and so it is considered that she had a [place] stroke score is negative at the time of admission due to remission of all her symptoms. However, her blood pressure on arrival was 245/124, requiring several medications to get this under control. This was probably the cause of the problem. She states that she clearly did not miss any of her medicines at home. She has noted that her medicines in the morning make her tired and caused her to take a nap, but she took her medicines as usual on the day that this occurred and at home her blood pressure was noted to be 179 systolically; however, by the time, at the ER , it was 245. PAST MEDICAL HISTORY: Significant for hospitalization on 11/19/2019 for exacerbation of COPD. She also has congestive heart failure, hyperlipidemia, hypertension, chronic back pain, osteoporosis, and depression. PAST SURGICAL HISTORY: Includes; 1. Appendectomy. 2. Hysterectomy. 3. Partial and total tonsillectomy. 4. Bladder suspension surgery. 5. D and C. 6. Tubal ligation. 7. Spinal injections for chronic pain. PAST PSYCHIATRIC HISTORY: Depression. 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 Continues to drink socially. Quit smoking about 10 years ago, but has a prior 45 pack-year smoking history. ALLERGIES: CODEINE, LEVAQUIN, SULFA. MEDICATIONS ON ADMISSION: Include; 1. Tradjenta 5 mg q.a.m. 2. Carvedilol (Coreg) 25 mg b.i.d. 3. Losartan 25 mg daily. 4. Clonidine 0.1 mg b.i.d. 5. Tizanidine 4 mg at bedtime. 6. Rosuvastatin 20 mg at bedtime. 7. Citalopram 20 mg at bedtime. 8. She takes tramadol 50 mg occasionally for pain. 9. Lasix 20 mg q.a.m. for edema. 10. Colace 100 mg b.i.d. REVIEW OF SYSTEMS: CONSTITUTIONAL: The patient has felt more tired and weak lately. HEENT: Denies drainage from eyes, ears, nose, or throat. CHEST: Denies chest pain or palpitations. PULMONARY: Denies cough. Has chronic shortness of breath. GI: Denies nausea, vomiting, or diarrhea. : Denies blood in urine or stool or painful urination or frequency. MUSCULOSKELETAL: Has chronic back pain, but other than that, has no new muscle pains or complaints. SKIN: No new rashes or lesions. NEUROLOGIC: Trouble with speaking her words for 3 hours, which prompted admission. Otherwise, denies headaches, blurred vision, or trouble with mentation. PHYSICAL EXAMINATION: VITAL SIGNS: At the time of admission, initial blood pressure in ER 245/125, however, this has been corrected, and on the floor, it has been 184/84, 175/83, currently it is 140/69. Other vital signs are stable including temperature 97.9 , pulse 62, respirations 20, and O2 saturation of 94% on room air. GENERAL: This is a well-developed, well-nourished, mildly obese, elderly female, alert, oriented, and cooperative. HEENT: Normocephalic, atraumatic. Pupils are equal, round, and reactive to light with arcus senilis bilaterally. TMs, nares, and pharynx clear. NECK: Supple. Trachea midline. No bruits bilaterally. CHEST: With diminished breath sounds throughout. HEART: Regular rate and rhythm. BREASTS: Deferred. ABDOMEN: Soft, nontender without hepatosplenomegaly. : Deferred. EXTREMITIES: Without clubbing, cyanosis, or edema. Normal range of motion is noted. Able to use all extremities normally. No clubbing, cyanosis, or edema. SKIN: Without new rashes or lesions. NEUROLOGIC: Cranial nerves are intact. Unable to test gait and cerebellar function at this time. 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 Moving all extremities normally. Mental status is at baseline. LABORATORY DATA: The lab work thus far shows WBCs at 8.1, hemoglobin 14, hematocrit 40, platelets at 184. Sodium 136, potassium 4.4, chloride 105, CO2 is 21, BUN 16, creatinine 1.02 with a GFR of 52, glucose 118. Troponin-I is negative x3. Liver functions unremarkable. Albumin slightly low. DIAGNOSTIC DATA: CT of the head was unremarkable. [place] shows some mild intimal plaque development in the carotid artery, but no significant stenosis noted. Chest x-ray shows early emphysematous changes. ASSESSMENT: 1 TIA, fully resolved. 2. Hypertensive urgency as probable cause for TIA. 3. Hypertension with compliance with medication. 4. [id number] diabetes with well-controlled blood sugar. 5. Chronic obstructive pulmonary disease/emphysema. PLAN: Continue telemetry observation for arrhythmia. As source of thrombosis, we will get a thrombotic profile, Neurology consultation, and control her blood pressure. We will also try to change her clonidine to a different medication as she states every morning if she takes her medicine, that forces her to go to sleep. Serial re-evaluation will also occur neurologically. Job ID: [id number] [facility]
[2020-02-03] MEDS: Losartan 25 MG TAB PO SCH (09:02)
[2020-02-03] MEDS: Docusate 100 MG CAP PO SCH ×2 (09:03→21:21)
[2020-02-03] MEDS: Carvedilol 25 MG TAB PO SCH ×2 (09:03→21:21)
[2020-02-03] MEDS: traMADol HCl 50 MG TAB PO PRN ×2 (09:03→15:42)
[2020-02-03] MEDS: Aspirin Chewable 81 MG TAB PO SCH (09:03)
[2020-02-03] MEDS: NIFEdipine 10 MG CAP PO SCH ×2 (09:09→21:22)
[2020-02-03 09:36] LABS: Hemoglobin A1c 6.1 % (4.0-6.0)
[2020-02-03 09:47] LABS: INR-International Normal Ratio 1.2; PTT 43.9 sec (22.9-36.1); Prothrombin Time 15.1 sec (12.0-14.7)
[2020-02-03 09:48] LABS: D-Dimer Test 1.15 *mcg/mL (0.27-0.43)
[2020-02-03] MEDS: cloNIDine 0.1 MG TAB PO PRN (10:03)
--- NOTE | 2020-02-03 11:14 | PDOC.FMACP ---
Advance Care Planning - Problem (1) TIA (transient ischemic attack) Status: Acute Code(s): G45.9 - TRANSIENT CEREBRAL ISCHEMIC ATTACK, UNSPECIFIED (2) Hypertensive emergency Status: Acute Code(s): I16.1 - HYPERTENSIVE EMERGENCY (3) COPD (chronic obstructive pulmonary disease) Status: Acute (4) Palliative care encounter Status: Acute Code(s): Z51.5 - ENCOUNTER FOR PALLIATIVE CARE - Note Participants: patient, family, palliative care Summary: Palliative Care introduced Advanced Care Planning, patient was allowed an opportunity to decline. The diagnosis, prognosis and goals of care were discussed. Appropriate forms and documentation to accomplish the goals of care were discussed. Ms Baldwin sister Ana was at bedside she designated her as MPOA. Ms Baldwin also transitioned herself to a DNAR, requesting no resuscitation measures if required to sustain life, but allow a natural . All questions were answered. Aric Richmond completed MPOA and DNAR with patient, provided information for Directive to Physician. Time Spent (mins): 30
--- NOTE | 2020-02-03 12:09 | CON ---
NEUROLOGY CONSULTATION DATE OF CONSULTATION: 02/03/2020 REASON FOR CONSULTATION: Transient ischemic attack. HISTORY OF PRESENT ILLNESS: Ms. Baldwin is an 79-year-old female with a history significant for hypertension, hyperlipidemia, congestive heart failure, chronic back pain, osteoporosis, and depression, presented with an episode of slurred speech and difficulty getting words out of her mouth. The patient provided the history. According to her, she was trying to say something, but the words were not getting out right. This lasted for about 3 hours and some symptoms resolved on its own. She was brought to the emergency room for further evaluation to rule out stroke. Her blood pressure at that time was 245/124. Per the patient, she has not been taking her blood pressure medications in the morning because this makes her tired. The patient is at her baseline at this time. The patient denies any focal weakness, focal paresthesias, nausea, vomiting, headache, dizziness, vertigo, chest pain or abdominal pain, loss of vision or blurred vision, loss of consciousness, or abnormal involuntary movement associated with this episode. REVIEW OF SYSTEMS: All 14 systems were reviewed and were negative except the pertinent positives and negatives mentioned in the HPI. PAST MEDICAL HISTORY: Congestive heart failure, hyperlipidemia, hypertension, chronic back pain, depression, osteoporosis, COPD. PAST SURGICAL HISTORY: Hysterectomy, appendectomy, partial and total tonsillectomy, bladder suspension surgery, tubal ligation. PAST PSYCHIATRIC HISTORY: Depression. 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 Drinks socially. Quit smoking 10 years ago. She had a 45 pack per year smoking history. ALLERGIES: CODEINE, LEVAQUIN, SULFA. HOME MEDICATIONS: 1. Tradjenta 5 mg q.a.m. 2. Coreg 25 mg twice daily. 3. Losartan 25 mg daily. 4. Clonidine 0.1 mg b.i.d. 5. Tizanidine 4 mg at bedtime. 6. Rosuvastatin 20 mg at bedtime. 7. Citalopram 20 mg at bedtime. 8. Tramadol 50 mg daily. 9. Lasix 20 mg daily. 10. Colace 100 mg daily. PHYSICAL EXAMINATION: VITAL SIGNS: Blood pressure 170/80, pulse 80, respiratory rate 18. CARDIOVASCULAR SYSTEM: Regular rate and rhythm. CHEST: Clear. ABDOMEN: Soft. NECK: No carotid bruit. NEUROLOGIC: Mental status: The patient is alert and oriented to person, place , and time. Speech is clear. Recent and remote memory intact. Fund of knowledge intact. Motor: Muscle tone and bulk are normal. Moving all 4 extremities equally and symmetrically. She does complain of generalized weakness. Sensory intact. Reflexes symmetric bilaterally. Gait deferred due to the patient's safety reason. Finger-nose testing intact. DATA REVIEWED: I reviewed the head CT, which was negative for acute intracranial process. I also reviewed the CTA, which showed mild internal plaque development in the carotid artery, but no significant stenosis. Chest x-ray shows emphysematous changes. Labs were essentially unremarkable. ASSESSMENT AND PLAN: Ms. Baldwin is an 79-year-old female with medical history significant for hypertension, hyperlipidemia, congestive heart failure, and diabetes, consulted for transient ischemic attack. Recommend MRI of the brain to rule out acute intracranial process. Recommend echocardiogram to rule out cardioembolic source. Recommend neuro checks every 4 hours. Recommend aspirin and high-intensity statin for secondary stroke prevention. Continue home medications, strict control of the blood glucose, permissive blood pressure control at this time, PT/OT/speech. Continue medical management per primary team. We will continue to follow. Thank you for the consult. Job ID: [id number] MTDD
--- NOTE | 2020-02-03 13:25 | MRI ---
Exam: Brain MRI without contrast HISTORY: Evaluate for CVA. Transient ischemic attack. Frontal headache. COMPARISON: None FINDINGS: Calvarial marrow signal intensity: Appropriate T1 signal Gradient echo sequence: No hemorrhage Brain parenchyma: No mass, mass effect or midline shift. Brain volume, age-appropriate. Cortical tuttle-white matter differentiation: Preserved Restricted diffusion: Central arterial flow voids are maintained. Absent restricted diffusion White matter signal intensities: T2, FLAIR white matter hyperintensities due to chronic small vessel ischemic changes Sinuses: Mild mucosal thickening of the paranasal sinuses IMPRESSION: 1. Age-appropriate brain volume and atrophy. 2. Chronic small vessel ischemic changes of the white matter 3. Absent restricted diffusion. No acute infarction.
[2020-02-03] MEDS: Citalopram 20 MG TAB PO SCH (21:21)
[2020-02-03] MEDS: Rosuvastatin 20 MG TAB PO SCH (21:22)
[2020-02-03] MEDS: tiZANidine HCl 4 MG TAB PO SCH (21:22)
[2020-02-04] MEDS ORDERED: hydrALAZINE 20 MG/ML VIAL SLOW IVP PRN (02:28)
[2020-02-04] MEDS: traMADol HCl 50 MG TAB PO PRN ×2 (04:31→18:58)
[2020-02-04] MEDS: cloNIDine 0.1 MG TAB PO PRN ×2 (07:26→18:59)
[2020-02-04] MEDS ORDERED: Alogliptin 25 MG TAB PO SCH (09:00)
--- NOTE | 2020-02-04 09:53 | ULT ---
BILATERAL RENAL ULTRASOUND: HISTORY: Evaluate for renal artery stenosis. COMPARISON: None. TECHNIQUE: Grayscale, color flow, Doppler imaging and spectral waveform analysis performed of the renal arteries . FINDINGS: Right kidney: Normal cortical echotexture. No hydronephrosis. Right kidney measurements: 4.5 x 4.4 x 8.7 cm. Left kidney: Normal cortical echotexture. No hydronephrosis. Left kidney measurements 4.6 x 3.6 x 8.6 cm. Urinary bladder: Normal mucosa. Doppler imaging: Right renal artery: 89.5 cm/s. Left renal artery 58.5 cm/s. Aorta: 59.7 cm/s. Right renal artery to aorta ratio 1.5. Left renal artery to aorta ratio 0.98. Right arcuate artery resistive indices: Upper pole 0.79; midpole 0.79; lower pole 0.69. Left arcuate artery resistive indices: Upper pole 0.72; midpole 0.78; lower pole 0.72. IMPRESSION: 1. No hydronephrosis. 2. Asymmetric increased velocity of the right renal artery. If there is concern for renal artery sten osis, consider CT angiogram. 2. Resistive indices at the upper limits of normal to slightly elevated. Correlate for medical renal disease. Transcribed Date/Time: 02/04/2020 10:43 AM
[2020-02-04] MEDS: NIFEdipine 10 MG CAP PO SCH ×2 (10:03→21:21)
[2020-02-04] MEDS: Carvedilol 25 MG TAB PO SCH ×2 (10:03→20:40)
[2020-02-04] MEDS: Losartan 25 MG TAB PO SCH (10:04)
[2020-02-04] MEDS: Aspirin Chewable 81 MG TAB PO SCH (10:04)
[2020-02-04] MEDS: Docusate 100 MG CAP PO SCH ×2 (10:04→20:41)
--- NOTE | 2020-02-04 11:59 | PDOC.HOSPP ---
- Subjective Encounter Date: 02/04/20 Subjective: NEUROLOGY PROGRESS NOTE No acute events overnight. Patient doing well and followed commands appropriately. - Objective Vital Signs & Weight: Vital Signs (12 hours) Temp Pulse Resp BP BP BP Pulse Ox 02/04/20 11:48 97.8 F 63 18 120/59 L 93 L 02/04/20 11:00 120/60 02/04/20 10:00 190/86 H 02/04/20 08:00 98 F 72 20 179/86 H 95 02/04/20 07:26 179/86 H 02/04/20 03:52 98.0 F 67 16 143/67 H 92 L 02/04/20 01:10 110/58 L Weight Weight 162 lb 11.2 oz I&O: 02/03/20 02/04/20 02/05/20 06:59 06:59 06:59 Intake Total 200 50 Balance 200 50 Result Diagrams: 02/02/20 19:27 02/02/20 19:27 Additional Labs: Accuchecks 02/04/20 02/04/20 02/03/20 10:42 04:04 16:57 POC Glucose 120 H 121 H 120 H Radiology Reviewed by me: Yes EKG Reviewed by me: Yes Hospitalist ROS - Review of Systems Constitutional: denies: fever, chills, sweats, weakness, malaise, other Eyes: denies: pain, vision change, conjunctivae inflammation, eyelid inflammation, redness, other ENT: denies: ear pain, ear discharge, nose pain, nose discharge, nose congestion , mouth pain, mouth swelling, throat pain, throat swelling, other Respiratory: denies: cough, dry, shortness of breath, hemoptysis, SOB with excertion, pleuritic pain, sputum, wheezing, other Gastrointestinal: denies: nausea, vomiting, abdominal pain, diarrhea, constipation, melena, hematochezia, other Genitourinary: denies: dysuria, frequency, incontinence, hematuria, retention, other Musculoskeletal: denies: neck pain, shoulder pain, arm pain, back pain, hand pain, leg pain, foot pain, other Skin: denies: rash, lesions, osbaldo, bruising, other Neurological: denies: weakness, numbness, incoordination, change in speech, confusion, seizures, other - Medication Medications: Active Medications Generic Name Dose Route Start Last Admin Trade Name Freq PRN Reason Stop Dose Admin Alogliptin Benzoate 12.5 mg 02/04/20 09:00 02/04/20 10:04 Alogliptin PO 12.5 mg QAM LATOYA Administration Aspirin 81 mg 02/03/20 09:00 02/04/20 10:04 Aspirin Chewable PO 81 mg QAM LATOYA Administration Carvedilol 25 mg 02/03/20 09:00 02/04/20 10:03 Coreg PO 25 mg BID LATOYA Administration Citalopram Hydrobromide 20 mg 02/03/20 21:00 02/03/20 21:21 Celexa PO 20 mg HS LATOYA Administration Clonidine 0.1 mg 02/03/20 08:02 02/04/20 07:26 Catapres PO 0.1 mg Q1H PRN Administration SBP >160 Docusate Sodium 100 mg 02/03/20 09:00 02/04/20 10:04 Colace PO 100 mg BID LATOYA Administration Losartan Potassium 50 mg 02/03/20 09:00 02/04/20 10:04 Cozaar PO 50 mg QAM LATOYA Administration Nifedipine 30 mg 02/03/20 09:00 02/04/20 10:03 Adalat PO 30 mg BID LATOYA Administration Rosuvastatin Calcium 20 mg 02/03/20 21:00 02/03/20 21:22 Crestor PO 20 mg HS LATOYA Administration Sodium Chloride 10 ml 02/03/20 09:00 02/04/20 10:04 Flush - Normal Saline IVF 10 ml Q12HR LATOYA Administration Tizanidine HCl 4 mg 02/03/20 21:00 02/03/20 21:22 Zanaflex PO 4 mg HS LATOYA Administration Tramadol HCl 50 mg 02/03/20 08:14 02/04/20 04:31 Ultram PO 50 mg Q6H PRN Administration Pain - Exam General Appearance: awake alert Eye: PERRL, anicteric sclera ENT: normocephalic atraumatic, no oropharyngeal lesions, moist mucosa Neck: supple, symmetric, no JVD Heart: RRR Respiratory: CTAB Gastrointestinal: soft Extremities: no cyanosis, no clubbing, no edema Skin: normal turgor, no lesions, no rashes Neurological: cranial nerve grossly intact, normal sensation to touch, no weakness, no focal deficits, no new deficit Musculoskeletal: normal tone, normal strength, no muscle wasting Psychiatric: normal affect, normal behavior, A&O x 3, oriented to person, oriented to place, oriented to time Hosp A/P (1) TIA (transient ischemic attack) Code(s): G45.9 - TRANSIENT CEREBRAL ISCHEMIC ATTACK, UNSPECIFIED Status: Acute (2) COPD (chronic obstructive pulmonary disease) Status: Acute (3) Hypertensive emergency Code(s): I16.1 - HYPERTENSIVE EMERGENCY Status: Acute - Plan PT/OT 79 year old with an episode of slurred speech and aphasia which is resolved and now at her baseline. Most likely TIA MRI brain reviewed which was negative for acute intracranial pathology. Renal US negative for hydronephrosis Recommend 2 D Echo to rule out cardioembolic source. CTA of head and neck reviewed and was negative for significant stenosis. Neurochecks every 4 hours. Telemetry Strict control of BP and BG. Continue aspirin and stain for secondary stroke prevention. Continue supportive measures. PT/OT/ Speech DVT prophylaxis. Continue medical management per primary team.
[2020-02-04 13:42] LABS: Protein C Activity 94 % (78-152)
[2020-02-04 13:44] LABS: Factor VIII Test 199.1 % ACTIVE (56-157)
--- NOTE | 2020-02-04 13:47 | ULT ---
BILATERAL LOWER EXTREMITY VENOUS DUPLEX ULTRASOUND INCLUDING COLOR AND SPECTRAL DOPPLER IMAGIN02/04/20 HISTORY: Lower extremity swelling and edema. Elevated D-dimer. FINDINGS: Exam performed from groin to ankle including the visualized greater saphenous, common femoral, superf icial femoral, profunda femoral, popliteal, trifurcation, and posterior tibial vein regions. There is phasic flow at all levels with normal compressibility and normal augmentation. No intraluminal throm bus. There is minimal scattered areas of flow reversal, evidence for some valvular incompetence. IMPRESSION: No evidence for deep venous thrombosis. POS: AH
[2020-02-04 15:54] VITALS: TEMP 98.2
[2020-02-04 16:15] LABS: Cardiolipin IgA Ab 7.4 APL-U/mL (<14 Negative); Cardiolipin IgG Ab 0.7 GPL-U/mL (<10 Negative); EliA APS New Method **** NEW METHOD ****
[2020-02-04 20:03] VITALS: BP 189/84
[2020-02-04] MEDS: Citalopram 20 MG TAB PO SCH (20:41)
[2020-02-04] MEDS: Rosuvastatin 20 MG TAB PO SCH (20:41)
[2020-02-04] MEDS: tiZANidine HCl 4 MG TAB PO SCH (20:41)
[2020-02-05 09:49] LABS: HEX PHOS LA Tube 1 48.9 SEC; HEX PHOS LA Tube 2 45.6 SEC; Hexagonal Phospholipid Neut 3.3 SEC (0-8.0)
[2020-02-10 14:14] LABS: Activated Protein C Resistance 2.5 ratio (.)
== END 2020-02-04 21:24 | disposition critical access hospital (66) ==
LOC: ERS 19:07 → 2SE 21:03
PROVIDERS: ADMIT Specialist; ATTEND Specialist
DX: G45.9 Transient cerebral ischemic attack, unspecified (principal); I16.0 Hypertensive urgency; I11.0 Hypertensive heart disease with heart failure; I50.9 Heart failure, unspecified; E11.9 Type 2 diabetes mellitus without complications; J43.9 Emphysema, unspecified; E78.5 Hyperlipidemia, unspecified; F32.9 Major depressive disorder, single episode, unspecified; M81.0 Age-related osteoporosis without current pathological fracture; G89.29 Other chronic pain; M54.9 Dorsalgia, unspecified; Z79.899 Other long term (current) drug therapy; Z87.891 Personal history of nicotine dependence; Z88.1 Allergy status to other antibiotic agents; Z88.2 Allergy status to sulfonamides; Z88.5 Allergy status to narcotic agent
CPT/HCPCS: 70450; 70496; 70498; 70551; 71045; 76770; 80053; 81240; 81241; 82962 ×2; 83036; 83090; 84484 ×3; 85025; 85240; 85300; 85303; 85305; 85307; 85379; 85598; 85610 ×2; 85652; 85730 ×2; 86140; 86147; 93005; 93306; 93970; 93975; 94640; 96365; 96368; 96375 ×3; 96376; 99285; G0378 ×4; 36415; 36416; J0360; J1200; J2765; J3475; J7620; Q9967

== ENCOUNTER 2022-12-27 13:10 | Outpatient (CLI) | payer MEDICARE | END 2022-12-27 13:11 | disposition home or self-care (01) | LOC: BICRAD 13:10 | PROVIDERS: ATTEND Family Medicine | DX: R04.2 Hemoptysis (principal) | CPT/HCPCS: 71046 ==

== ENCOUNTER 2023-04-15 10:51 | Day surgery (SDC) | payer MEDICARE ==
[2023-04-12 14:40] VITALS: BMI 31.2
[2023-04-15] MEDS ORDERED: Sodium Chloride 0.9% 1,000 ML IV SCH (11:45)
[2023-04-15] MEDS ORDERED: Lidocaine 4% PF 5 ML AMP NEB SCH (11:45)
[2023-04-15] MEDS ORDERED: Ipratropium/Albuterol 3 ML NEB NEB SCH (11:45)
[2023-04-15] MEDS ORDERED: fentaNYL PF 100 MCG/2 ML SYRINGE ONE (12:23)
[2023-04-15] MEDS ORDERED: Phenylephrine 10 MG/ML VIAL ONE (12:23)
[2023-04-15] MEDS ORDERED: Ipratropium Bromide 2.5 ml Neb ONE (12:24)
[2023-04-15] MEDS ORDERED: Ipratropium/Albuterol 3 ML NEB ONE (12:24)
[2023-04-15 12:53] LABS: Anion Gap 12 mmol/L (10-20); BUN (Urea Nitrogen) 11 mg/dL (9.8-20.1); Calc. Creatinine Clearance 36 mL/min (70-130); Calcium 9.2 mg/dL (7.8-10.44); Carbon Dioxide 27 mmol/L (23-31); Chloride 103 mmol/L (98-107); Estimated GFR 40; Glucose 120 mg/dL (83-110); Potassium 2.7 mmol/L (3.5-5.1); Sodium 139 mmol/L (136-145)
[2023-04-15] MEDS ORDERED: ePHEDrine Sulfate 50 MG/10 ML VIAL ONE (13:27)
[2023-04-15] MEDS ORDERED: Ondansetron PF 4 MG/2 ML Vial ONE (13:27)
[2023-04-15] MEDS ORDERED: PHENYLEPHRINE-NS 100 MCG/ML 10 ML SYRINGE ONE (13:27)
[2023-04-15] MEDS ORDERED: Dexamethasone 20 MG/5 ML VIAL ONE (13:27)
[2023-04-15] MEDS ORDERED: Rocuronium Bromide 10 MG/ML (10ML VIAL) ONE (13:27)
[2023-04-15] MEDS ORDERED: PROPOFOL 200 MG/20 ML VIAL ONE (13:27)
== END 2023-04-15 17:06 | disposition home or self-care (01) ==
LOC: SDC 10:51
PROVIDERS: ATTEND Internal Medicine
PROC: 0B9H8ZZ Drainage of Lung Lingula, Via Natural or Artificial Opening Endoscopic (ICD-10-PCS; principal; 2023-04-15)
PROC: 0BBH8ZX Excision of Lung Lingula, Via Natural or Artificial Opening Endoscopic, Diagnostic (ICD-10-PCS; 2023-04-15)
DX: C34.12 Malignant neoplasm of upper lobe, left bronchus or lung (principal); R59.0 Localized enlarged lymph nodes
CPT/HCPCS: 80048; 88172; 88173; 88177; 88305; 88341; 88342; 93005; 93010; J1100; J2370; J2405; J2704; J7611; J7620